=== PATIENT | male | born 1985 | race Caucasian/White ===

== ENCOUNTER 2019-04-04 10:48 | Emergency (ER) | payer SELFPAY ==
[~2019-04-04] VITALS: Ht 185.4 cm; Wt 70.5 kg
[2019-04-04] MEDS ORDERED: FLUORESCEIN SODIUM 1 MG STRIP OU ONE (11:45)
[2019-04-04] MEDS ORDERED: PROPARACAINE HCL 0.5% 15 ML OPHTHALMIC SOLUTION OU ONE (11:45)
[2019-04-04] MEDS ORDERED: ERYTHROMYCIN 0.5% 3.5 GM TUBE OPHTHALMIC OINTMENT OS ONE (12:15)
[2019-04-04 12:42] VITALS: BP 128/71
== END 2019-04-04 12:48 | disposition home or self-care (01) ==
LOC: EMS 10:48
DX: B30.9 Viral conjunctivitis, unspecified (principal)